=== PATIENT | male | born 1940 | race Caucasian/White ===

== ENCOUNTER 2025-02-05 14:09 | Outpatient (CLI) | payer OTHER, SELFPAY ==
[2025-02-05 09:01] LABS: Appearance Urine Clear (Clear); Bilirubin Urine Negative (Negative); Blood Urine Negative (Negative); Color Urine Yellow (Yellow); Glucose Urine Negative (Negative); Ketones Urine Negative (Negative); Leukocyte Esterase Urine Negative (Negative); Nitrite Urine Negative (Negative); Protein Urine Negative (Negative)
[2025-02-05 09:10] LABS: RBC Urine 0-2 (0-2); Squamous Epithelial Cell Urine Few (None-Few); WBC Urine 0-2 (0-5)
[2025-02-05 09:25] LABS: Chloride* 101 mmol/L (96-114); Potassium* 4.6 mmol/L (3.6-5.1); Sodium* 138 mmol/L (135-149)
[2025-02-05 09:27] LABS: Bilirubin Total* 0.5 mg/dL (0.1-1.5); Blood Urea Nitrogen* 12 mg/dL (7-30); Creatinine* 1.3 mg/dL (0.5-1.5); Estimated Glomerular Filt Rate 55 ml/min
[2025-02-05 09:28] LABS: Alanine Aminotransferase* 17 U/L (4-50); Alkaline Phosphatase* 54 U/L (40-150); Anion Gap 8 mEq/L (7-15); Aspartate Amino Transferase* 20 U/L (12-35); Calcium* 9.7 mg/dL (8.4-10.6); Carbon Dioxide* 29 mmol/L (20-32); Glucose* 114 mg/dL (60-115)
[2025-02-05 09:38] LABS: Albumin* 4.3 g/dL (3.3-5.0)
[2025-02-05 09:41] LABS: Total Protein* 6.6 g/dL (6.0-8.3)
== END 2025-02-05 14:10 | disposition home or self-care (01) ==
LOC: LAB 14:30
PROVIDERS: Visit Provider Chiropractor
DX: N28.1 Cyst of kidney, acquired (principal)
CPT/HCPCS: 36415; 80053; 81001